=== PATIENT | male | born 1970 | race Asian ===

== ENCOUNTER 2018-08-23 17:58 | Emergency (ER) | payer OTHER ==
--- NOTE | 2018-08-23 18:22 | EDPHY ---
H & P Smoking Status: Never smoked Time Seen by Provider: 08/23/18 18:17 HPI/ROS: CHIEF COMPLAINT: "I think I dislocated my shoulder" HISTORY OF PRESENT ILLNESS: 48-year-old male arrives via private vehicle complaining of acute right shoulder pain after he fell while he was skiing, impacted his right shoulder, feels it may be fractured and/or dislocated. Unable to move secondary to pain. No head injury. No paresthesia. PHYSICAL EXAM (Prior to examination, patient consented to physical exam, hands were washed and my usual and customary physical exam procedures followed) 1) GENERAL: Well-developed, well-nourished, alert and oriented. Appears uncomfortable 2) HEAD: Normocephalic 3) HEENT: Pupils equal, round, reactive to light bilaterally. 4) LUNGS: Breathing comfortably. 5) MUSCULOSKELETAL: Anterior fullness and lateral step-off. Intact skin. No axillary nerve dysfunction. Soft compartments. Normal coloration. 6) SKIN: Intact 7) VASCULAR: pulses and cap refill present are brisk 8) NEUROLOGIC: Radial, ulnar, median nerve function intact with no deficits appreciated on exam DIFFERENTIAL DIAGNOSIS: in no particular order including but not limited to fracture, sprain, compartment syndrome, dislocation (Dyan Oseguera) Constitutional: Initial Vital Signs Temperature (C) 36.3 C 08/23/18 18:13 Heart Rate 104 H 08/23/18 18:13 Respiratory Rate 20 08/23/18 18:13 Blood Pressure 150/91 H 08/23/18 18:13 O2 Sat (%) 94 08/23/18 18:13 O2 Delivery Mode Room Air O2 (L/minute) 2 Allergies/Adverse Reactions: No Known Allergies Allergy (Unverified 08/23/18 18:15) Home Medications: Medication Instructions Recorded Hydrocodone/APAP 5/325 [[place] 1 tab PO Q6 PRN #10 tab 08/23/18 5/325 (RX)] MDM/Departure - MDM Imaging Results: Imaging Impressions Shoulder X-Ray 08/23/18 18:19 Impression: 1. Anterior dislocation right humeral head. Shoulder X-Ray 08/23/18 19:27 Impression: 1. Good alignment of right shoulder postreduction. Imaging Impressions Shoulder X-Ray 08/23/18 18:19 Impression: 1. Anterior dislocation right humeral head. Shoulder X-Ray 08/23/18 19:27 Impression: 1. Good alignment of right shoulder postreduction. Images reviewed myself (Dyan Oseguera) Medications Given: Discontinued Medications Fentanyl (Sublimaze) 100 mcg IVP EDNOW ONE Stop: 08/23/18 18:47 Last Admin: 08/23/18 18:56 Dose: 100 mcg Midazolam HCl (Versed) 1 mg IVP EDNOW ONE Stop: 08/23/18 19:10 Last Admin: 08/23/18 19:21 Dose: 1 mg Oxycodone/Acetaminophen (Percocet 5/325mg Prepack#4) 1 btl TAKEHOME EDNOW ONE Stop: 08/23/18 19:39 Last Admin: 08/23/18 19:42 Dose: 1 btl ED Course/Re-evaluation: Independent physician evaluation: I evaluated and participated in the management of the patient. I also evaluated the patient independently. My co-signature indicates that I have reviewed this chart and I agree with the findings and plan of care as documented. My personal H&P findings include: The patient presents the emergency department with a right shoulder dislocation that occurred at 2:30 p.m. today. The patient denies any any additional injury. He denies any acute numbness or weakness. The patient was initially seen by the physician aquatics assistant department head who was unable to reduce the shoulder dislocation. Physical exam: General Appearance: Alert, no distress Head: Atraumatic Eyes: Pupils equal, round, reactive ENT, Mouth: No hemotympanum, no oral trauma Neck: Nontender, trachea midline Respiratory: No chest wall tender, no subcutaneous air, lungs clear bilaterally Cardiovascular: Regular rate and rhythm Abdomen: Abdomen is soft and nontender, pelvis stable Skin: No lacerations, No abrasion Back: No midline T/L/S pain Extremities: Obvious glenohumeral dislocation involving the right shoulder Neurological: A&Ox3, normal motor function, normal sensory exam ED course: Patient received 2 mg of IV Versed. Using the Whaley technique I was able to reduce the shoulder without complication. Procedure: Procedure: Dislocation reduction. Indication: Dislocation The anterior shoulder dislocation was reduced in the usual fashion without complications. Post reduction the patient's neurovascular exam is normal. Post reduction x-ray demonstrates reduction of the joint to the anatomic position. The procedure was performed by myself. Disposition: Placed in sling, discharged home with orthopedic follow-up. (Greg Hartman) - Depart Disposition: Home, Routine, Self-Care Clinical Impression: Dislocation of right shoulder joint Qualifiers: Encounter type: initial encounter Qualified Code(s): S43.004A - Unspecified dislocation of right shoulder joint, initial encounter Condition: Good Instructions: Hydrocodone/Acetaminophen (By mouth), Shoulder Dislocation (ED) Additional Instructions: Return to the ER immediately if you experience discoloration, have worsening pain, numbness, tingling, or any other symptoms that concern you. If you received x-rays in the emergency department today, be advised, that ligamentous , tendon, muscular, and other non-bony injury cannot be fully ruled out. Try to keep your affected extremity elevated above the level of your chest, and keep cold packs on the affected area, for the next 48 hours. Prescriptions: Hydrocodone/APAP 5/325 [[place] 5/325 (RX)] 1 tab PO Q6 PRN #10 tab PRN Reason: Pain, Severe Referrals: Alfie Espino MD [Medical Doctor] - 2-3 days, call for appt.
[2018-08-23] MEDS ORDERED: fentaNYL 100 MCG/2 ML INJ IVP ONE (18:46)
[2018-08-23] MEDS ORDERED: MIDAZOLAM 2 MG/2 ML VIAL IVP ONE (19:09)
[2018-08-23] MEDS ORDERED: OXYCODONE/APAP 5/325MG PREPACK#4 BTL TAKEHOME ONE (19:38)
[2018-08-23 19:56] VITALS: BP 136/100
== END 2018-08-23 19:56 | disposition home or self-care (01) ==
PROC: 0RSJXZZ Reposition Right Shoulder Joint, External Approach (ICD-10-PCS; principal; 2018-08-23)
DX: S43.004A Unspecified dislocation of right shoulder joint, initial encounter (principal); V00.311A Fall from snowboard, initial encounter; Y93.23 Activity, snow (alpine) (downhill) skiing, snowboarding, sledding, tobogganing and snow tubing
CPT/HCPCS: J2250; J3010